=== PATIENT | female | born 1970 | race Caucasian/White ===

== ENCOUNTER 2020-09-11 09:28 | Inpatient (IN) ==
--- NOTE | 2020-09-10 09:58 | Anesthesiology Consultation ---
Date of Service September 10, 2020 Assessment & Plan (1) Encounter for pre-operative examination: Chart Review Chart Review: Acceptable Risk for Surgery and Patient NOT seen in Pre Admission Testing - Check test AM DOS - Check BSG AM DOS Per nursing assessment 09/10/2020, pt resides in [facility]. Wears mask when required by CDC guidelines. Pt is vaccinated for Covid. Travels to [facility] for medical appts. No known Covid positive contacts or Covid related symptoms. No known Covid infection in the past 90 days. Preop Covid test 09/07/20= negative History Surgery Operation Date: 09/11/20 11:00 Proposed Procedures p Total Abdominal Hysterectomy Bilateral Salpingo Oophorectomy - Wilder Barrios MD Height/Weight Height: 5 ft 3 in Weight: 95.254 kg Allergies Allergy/AdvReac Type Severity Reaction Status Date / Time No Known Allergies Allergy Verified 09/10/20 09:05 Medications Home Medications Medication Instructions Recorded Confirmed Last Taken Marijuana Medical Card 1 inh INHALATION DAILY 09/10/20 09/10/20 Unknown clonazepam [Klonopin] 0.5 mg PO DAILY PRN 09/10/20 09/10/20 Unknown fexofenadine 180 mg PO DAILY PRN 09/10/20 09/10/20 Unknown hydrochlorothiazide 12.5 mg PO QAM 09/10/20 09/10/20 Unknown hydroxyzine HCl 25 mg PO HS 09/10/20 09/10/20 Unknown losartan 50 mg PO HS 09/10/20 09/10/20 Unknown nicotine [Nicoderm] 1 patch TRANSDERMAL DAILY 09/10/20 09/10/20 Unknown sertraline [Zoloft] 100 mg PO HS 09/10/20 09/10/20 Unknown Past Medical History Medical History Anxiety SEVERE Cancer RIGHT BREAST DX'D 07/19/20-BREAST SURGERY TBD IN THE FUTURE Diabetes mellitus, type 2 DIET MANAGED Hypertension Migraine HX Temporomandibular joint disorder CLICKS BILAT-NO LOCKING Past Family History Family History Mother Family history of diabetes mellitus Family hx of colon cancer Sister Family hx of colon cancer Past Surgical History Surgical History History of breast biopsy RIGHT History of endometrial ablation WITH D AND C, TUBAL LIGATION Social History Smoking Status: Light tobacco smoker Smoking cigarettes per day: 1-2 A DAY TRYING TO QUIT Do You Dip or Chew Tobacco: Yes (PARENTS SMOKED) Hx Alcohol Use: Yes alcohol intake frequency: a few times a month Hx Substance Use: Yes substance use type: marijuana Substance Use Type Other:: MEDICAL MARIJUANA CARD INH DAILY Lab Results Anesthesia Preop Results Results Anesthesia Widget: WBC 8.73 K/uL (4.8-10.8) 09/07/20 Hgb 13.3 g/dL (12.0-16.0) 09/07/20 Hct 37.9 % (37-47) 09/07/20 Plt 314 K/uL (130-400) 09/07/20 Na 140 mmol/L (136-145) 09/07/20 K 3.8 mmol/L (3.5-5.1) 09/07/20 Cl 110 mmol/L (98-107) H 09/07/20 CO2 24 mmol/L (21-32) 09/07/20 BUN 9 mg/dl (7-18) 09/07/20 Creat 0.67 mg/dl (0.6-1.2) 09/07/20 Glucose Level 88 mg/dl (70-99) 09/07/20 PT 10.9 Seconds (9.0-12.0) 09/07/20 PTT 25.7 Seconds (21.0-31.0) 09/07/20 INR 1.1 (0.9-1.1) 09/07/20 SARS-CoV-2, RNA, NAAT Pending 09/11/20 Blood Type A Negative 09/07/20 Antibody Screen NEGATIVE 09/07/20 Testing Electrocardiogram Date: 09/07/20 Findings: + NSR @ (71bpm) Normal EKG per cardio. Chest X-Ray Date: 09/07/20 Findings: + NAD
--- NOTE | 2020-09-10 11:42 | History and Physical Report ---
DATE OF ADMISSION: 09/11/2020 CHIEF COMPLAINT: Invasive ductal carcinoma in situ, large fibroid. HISTORY OF PRESENT ILLNESS: The patient is a 50-year-old 2, para 2. 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 She has had a tubal ligation and an endometrial abl ation in 2012 for control. She has had no bleeding since. Her last PAP smear was done in 2020 ; it was completely normal. In 06/2020, she was diagnosed with invasive ductal carcinoma in situ wit h one positive node. She was worked up with a PET scan. PET scan revealed a large fibroid uterus, w hich lit up and was subsequently evaluated with an ultrasound; it was found to be 9.9 x 7 x 7.8 cm. She is symptomatic from the fibroid and her oncologist is concerned that it showed activity on the PE T scan. She is presently being scheduled for total abdominal hysterectomy with removal of both ovari es. ALLERGIES: She has no drug allergies. PAST SURGICAL HISTORY: She had a tubal ligation. She had an endometrial ablation. 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 PAST MEDICAL HISTORY: She has high blood pressure for which she is being treated. SOCIAL HISTORY: She was a smoker; she stopped a month ago in anticipation of surgery. No history of excessive alcohol intake. Presently on disability. FAMILY HISTORY: Two children in good health. Mom at age 79 of rectal carcinoma. Father a t age 83 of stroke. She has one sister that is 54 years old that has rectal carcinoma. REVIEW OF SYSTEMS: HEAD: No symptoms of frequent or severe headaches. She did have a history of migraine headache and received acupuncture, which relieved the headaches. PHYSICAL EXAMINATION: GENERAL: A well-developed, well-nourished 50-year-old white female, alert, oriented x3, and coopera tive, in no acute distress, appeared her stated age. EYES: Conjunctivae are pink. Sclerae white. No evidence of jaundice. EARS: Normal light reflex bilaterally. NOSE: Normal mucosa. Septum is midline. There were no polyps. THROAT: No erythema or evidence of infection. Teeth are in good state of repair. HEAD: Normocephalic, normal distribution of hair. NECK: Supple. Trachea midline. Thyroid is not enlarged. There is no adenopathy appreciated. Both carotids are of good intensity. CHEST/LUNGS: Clear to auscultation and percussion. No wheezes, rales or rhonchi appreciated. BREASTS: Revealed a scar from removal of breast mass. HEART: Regular rhythm, S1 and S2 are normal. ABDOMEN: Soft and nontender. Uterus was palpable. PELVIC: Cervix appeared within normal limits. Bimanual exam revealed an enlarged approximately a 16 -week gestational size uterus. MUSCULOSKELETAL: Revealed no calf tenderness. IMPRESSION OF THIS CASE: Hypertension, invasive ductal carcinoma in situ with positive node, symptom atic uterine fibroid, status post tubal ligation, status post endometrial ablation. Job ID: [id number]
[~2020-09-11 09:28] MED LIST: LR 15ML/HR IV SCH
[2020-09-11] MEDS ORDERED: NALOXONE HCL 0.08 MG in SYRINGE 1.8 ML IV PRN (10:06)
[2020-09-11] MEDS ORDERED: ePHEDrine sulfate 50 MG/ML AMP IV PRN (10:06)
[2020-09-11] MEDS ORDERED: ONDANSETRON INJ 2 MG/ML 2 ML VIAL IV PRN (10:06)
[2020-09-11] MEDS ORDERED: NALBUPHINE HCL INJ 10 MG/ML AMP IV PRN (10:06)
[2020-09-11] MEDS ORDERED: MEPERIDINE HCL 25 MG/ML CARP/VIAL IV PRN (10:06)
[2020-09-11] MEDS ORDERED: MoRPHine SULFATE PF 1 MG/ML 10 ML AMP/VIAL INT SPINAL ONE (10:06)
[2020-09-11] MEDS ORDERED: NALOXONE HCL 0.4 MG/1 ML VIAL/CARP IV PRN (10:06)
[2020-09-11] MEDS ORDERED: LACTATED RINGER'S 500 ML IV PRN (10:06)
[2020-09-11] MEDS ORDERED: diphenhydrAMINE 50 MG/ML VIAL IV PRN (10:06)
[2020-09-11] MEDS ORDERED: PROMETHAZINE HCL 12.5 MG in SODIUM CHLORIDE 0.9% 50 ML IV PRN (10:06)
[2020-09-11] MEDS ORDERED: NALOXONE HCL 1 MG in SODIUM CHLORIDE 0.9% 1000ML 1,000 ML IV PRN (10:06)
[2020-09-11] MEDS ORDERED: NO NARCOTICS OR SEDATIVES SCH (10:15)
[2020-09-11] MEDS ORDERED: SODIUM CHLORIDE 0.9% 1000ML 1,000 ML IV SCH (10:15)
[2020-09-11] MEDS ORDERED: MIDAZOLAM HCL 1 MG/ML 2ML VIAL ONE (10:18)
[2020-09-11] MEDS ORDERED: fentaNYL citrate 100 MCG/2 ML VIAL ONE (10:18)
[2020-09-11] MEDS ORDERED: MoRPHine SULFATE PF 1 MG/ML 10 ML AMP/VIAL ONE (10:22)
--- NOTE | 2020-09-11 10:58 | History & Physical Bridge Note ---
Date of Service September 11, 2020 History & Physical Bridge Note I have examined the patient, reviewed the History & Physical and in the interval since the performance of the History & Physical I have noted the following changes of clinical significance: no changes noted
[2020-09-11] MEDS ORDERED: cefOXitin 2,000 MG in DEXTROSE 5% 50 ML IV SCH (11:00)
[2020-09-11] MEDS ORDERED: ROCURONIUM BROMIDE 10 MG/ML 5 ML VIAL IV ONE ×4 (11:20→13:01)
[2020-09-11] MEDS ORDERED: PROPOFOL IV EMULSION 10 MG/ML 20 ML VIAL IV ONE ×2 (11:20→14:02)
[2020-09-11] MEDS ORDERED: LIDOCAINE 2% 2 ML VIAL/AMP(20MG/ML) INFIL ONE (11:20)
[2020-09-11] MEDS ORDERED: ONDANSETRON INJ 2 MG/ML 2 ML VIAL ONE (11:20)
[2020-09-11] MEDS ORDERED: HEPARIN (PORCINE) 1000 UNIT/ML 10 ML (CATH LAB USE ONLY) ONE (11:43)
[2020-09-11] MEDS ORDERED: ePHEDrine sulfate 50 MG/ML AMP ONE (13:04)
[2020-09-11] MEDS ORDERED: SUGAMMADEX SODIUM 200 MG/2 ML VIAL IV ONE (13:05)
--- NOTE | 2020-09-11 14:17 | Post Operative Brief Note ---
Immediate Post Op Note v1 Date of Surgery September 11, 2020 Pre & Post Diagnosis Operation Date: 09/11/20 11:00 Pre-Op Diagnosis: Recently Diagnosed Invasive Ductal Cancer, Fibroid Post-Op Diagnosis: Recently Diagnosed Invasive Ductal Cancer, Fibroid I identified the patient and participated in the time-out.: Yes Procedure Operation Date: 09/11/20 11:00 Actual Procedures p Total Abdominal Hysterectomy Bilateral Salpingo Oophorectomy(Not Applicable) - Wilder Barrios MD Surgeon Wilder Barrios MD [employer] Counselor Dr Oliveros Estimated Blood Loss 100 Findings Consistent with Post-Op Diagnosis large fibroid uterus Specimens both tubes and ovaries fibroid uterus Drains Ambrocio Catheter and Other Anesthesia Type General Complications none Disposition Accompanied Patient To Recovery: No Disposition: Recovery Room
--- NOTE | 2020-09-11 14:48 | Operative Report (OR) ---
DATE OF PROCEDURE: 09/11/2020 PROCEDURE: Total abdominal hysterectomy, bilateral salpingo-oophorectomy. INDICATIONS FOR SURGERY: Symptomatic uterine fibroids. PREOPERATIVE DIAGNOSES: Symptomatic uterine fibroids, breast cancer with positive nodes. POSTOPERATIVE DIAGNOSES: Symptomatic uterine fibroids, breast cancer with positive nodes. PATHOLOGY: Pending. SURGEON: Villa Barrios MD GYMNASTICS COACH OR INSTRUCTOR: Dr. Santosh Oliveros ESTIMATED BLOOD LOSS: 100 mL. ANESTHESIA: General. OPERATIVE FINDINGS AND PROCEDURE: The patient was brought to the OR table, correctly identified by armband and conversation. General anesthesia was administered. Lower abdomen was painted with an alcohol based sterilizing solution. Vaginal prep was done with Betadine. Ambrocio catheter was inserted aseptically in the bladder. Compression stockings were applied. A midline incision was made and carried down to the anterior fascia by sharp dissection. Hemostasis was secured by electrocauterization. Fascia was in the midline. The recti muscle was in the midline. Peritoneum was carefully raised and entered. Then, an O'Drake-O'Felton self-retraining retractor was inserted in the incision. Several moist laparotomy packs were used to retract the intestines. There was a large fibroid uterus, which distorted the shape of the uterus, was grasped with a double tooth tenaculum, both ovaries were normal. Both tubes were status post tubal ligation. The ovarian ligaments were located on each side and then doubly ligated with a chromic gut suture. After tying off the supply to both ovaries, the round ligaments were clamped close to the fundus then doubly ligated distally, cut and then incision was made above the vesicouterine fold. The bladder was advanced out of the operative field. The ovaries were then cut away from the lateral pelvic childs. The uterine vessels were skeletonized on each side, doubly clamped with curved David's, cut with a stump and then doubly ligated with a chromic gut suture. Then, I took a bite of the upper cervix with a curved David on each side, cut with a stump, ligated with a chromic gut suture. I then excised the surgical specimen consisting of upper cervix, both tubes and both ovaries and fibroid. I had much better visualization, I grabbed the cervical stump. We then took out most of the cervix by sliding off the stump and clamping the cardinal ligaments with a chromic gut suture. Then, cutting away the additional portion of the cervix, suturing the angles of the cervix to the stumps of the cardinal ligament then whip stitching what was left of the cervix open and then approximating it front to back on either side, placing a Mcewen drain with a safety pin into the cervix and down into the cul-de-sac. I then brought the round ligaments down for support and tied them into the sutures that were on the cervix. I then reperitonealized using the peritoneal edges and reperitonealized from the right to the middle and then from the left to the middle and then tied them to each other. The end of the Christopher drain was in the cul-de-sac gathering with the safety pin within the vagina. We washed everything. Hemostasis was excellent. Lap count was normal. We then closed the abdomen. The peritoneum was closed with a running chromic gut suture. The PDS was used to approximate the fascia. One was anchored at the top of the fascial defect, one was anchored at the bottom of the fascial defect and was run from the bottom up to the middle and from the top down to the middle. Subcutaneous was approximated with interrupted plain. The skin edges were approximated with staple clips. Following this, hemostasis was good. Urine was clear. Estimated blood loss was 100 mL. Job ID: [id number] [facility]
--- NOTE | 2020-09-11 14:55 | Anesthesiology Progress Note ---
Date of Service September 11, 2020 Anesthesia Post Procedure Vital Signs Vital Signs: Temp Pulse Pulse Resp BP Pulse Ox 09/11/20 14:45 36.5 C 78 24 116/67 94 09/11/20 14:35 36.4 C L 82 22 128/76 98 09/11/20 14:25 86 23 111/69 98 09/11/20 14:18 36.4 C L 77 22 91/56 L 97 09/11/20 10:21 37.3 C 75 18 120/73 96 Transfer of Care Handoff Completed per policy Notes Mental Status: alert / awake / arousable Patient Amnestic to Procedure: Yes Nausea / Vomiting: adequately controlled Pain: adequately controlled Airway Patency, RR, SpO2: stable & adequate BP & HR: stable & adequate Hydration State: stable & adequate Anesthetic Complications: no major complications apparent
[2020-09-11] MEDS: KETOROLAC 30 MG/ML VIAL IV PRN ×2 (15:36→23:36)
[2020-09-11] MEDS: LACTATED RINGER'S 1,000 ML IV SCH (20:30)
[2020-09-12] MEDS ORDERED: ONDANSETRON INJ 2 MG/ML 2 ML VIAL IV PRN (04:06)
[2020-09-12] MEDS ORDERED: PROMETHAZINE HCL 25 MG in SODIUM CHLORIDE 0.9% 50 ML IV PRN (04:06)
[2020-09-12] MEDS ORDERED: DC INTRASPINAL MORPHINE SCH (04:06)
[2020-09-12] MEDS ORDERED: MEPERIDINE HCL 50 MG/ML CARP IV PRN (04:06)
[2020-09-12] MEDS ORDERED: KETOROLAC 30 MG/ML VIAL IV PRN (04:06)
[2020-09-12] MEDS: LACTATED RINGER'S 1,000 ML IV SCH (04:29)
[2020-09-12] MEDS: oxyCODONE/ACETAMINOPHEN 5mg/325mg TAB PO PRN ×3 (10:28→19:35)
--- NOTE | 2020-09-12 11:21 | Obstetrical Progress Note ---
Date of Service September 12, 2020 Assessment & Plan Admission and Anticipated Discharge Date Admission Date: September 11, 2020 Physical Exam Physical Exam: abdomen soft and non tender passing flatus bandage removed incision is clean and dry no calf tenderness ambulating well vaginal bleeding scant Results & Data ([facility]) Vital Signs (Past 12 Hours) Vital Signs Temp Pulse Resp BP Pulse Ox 09/12/20 07:25 37.3 C 76 18 116/72 96 09/12/20 04:00 36.8 C 76 18 96/61 L 95 09/12/20 03:00 18 93 09/12/20 02:00 18 93 09/12/20 01:00 16 92 09/12/20 00:10 18 93 09/11/20 23:25 36.8 C 73 18 96/60 L 95 09/11/20 23:15 18 92
[2020-09-12 11:38] LABS: Hematocrit (blood only) 34.4 % (37-47); Hemoglobin 11.5 g/dL (12.0-16.0)
[2020-09-12] MEDS: IBUPROFEN 600 MG TAB PO PRN ×3 (15:09→23:44)
[2020-09-12] MEDS ORDERED: diphenhydrAMINE Capsule 25 MG CAP PO ONE (17:44)
[2020-09-12] MEDS ORDERED: diphenhydrAMINE Capsule 25 MG CAP ONE (17:48)
[2020-09-12] MEDS: ACETAMINOPHEN W/CODEINE #3 1 TAB PO PRN (23:44)
[2020-09-13] MEDS: ACETAMINOPHEN W/CODEINE #3 1 TAB PO PRN (06:05)
[2020-09-13] MEDS: IBUPROFEN 600 MG TAB PO PRN (06:05)
[2020-09-13] MEDS ORDERED: HYDROCODONE/ACETAMOPHEN 5/325MG TAB PO PRN (09:05)
--- NOTE | 2020-09-13 09:13 | Obstetrical Progress Note ---
Date of Service September 13, 2020 Assessment & Plan Admission and Anticipated Discharge Date Admission Date: September 11, 2020 Subjective abdomen soft and non tender incision is clean and dry no calf tenderness ambulating well xiang drain with saftey pin remode vaginal bleeding scant hgb 11.5 Results & Data ([facility]) Vital Signs (Past 12 Hours) Vital Signs Temp Pulse Resp BP Pulse Ox 09/13/20 07:20 36.7 C 63 18 113/65 97 09/13/20 03:25 36.8 C 59 L 16 90/58 L 96 09/12/20 23:20 37.0 C 70 18 106/67 94
[2020-09-13] MEDS ORDERED: HYDROCODONE/ACETAMOPHEN 5/325MG TAB PO ONE (09:14)
--- NOTE | 2020-09-13 11:29 | Discharge Summary (DS) ---
DATE OF ADMISSION: 09/11/2020 DATE OF DISCHARGE: 09/13/2020 HOSPITAL COURSE: Mrs. Lisa was admitted with a large 9-10 cm fibroid uterus. She recently was di agnosed with invasive ductal carcinoma with one positive node. We did a PET scan. The fibroid lit up . Her oncologist was concerned about it and so we decided to remove it due to the fact that it lit up on PET scan and its size. At the time of surgery, we took both of her ovaries out as per request fr om her oncologist on the day of surgery. She underwent total abdominal hysterectomy, bilateral salpi zelaya-oophorectomy. Bleeding was minimal. Her preoperative hemoglobin was over 12. Postoperatively, i t fell to 11.5. A [employer] drain with a safety pin was placed in the vaginal cuff for drainage. Her postoperative course was excellent. Her bowel sounds returned in under 24 hours. At the time of disc harge, she was ambulating well, eating well. The Christopher drain was removed. Vaginal bleeding was sl ight to moderate. Incision was clean and dry. She was discharged and instructed to return to the [facility] in about 7-8 days for removal of abiel. Job ID: [id number]
== END 2020-09-13 09:35 | disposition home or self-care (01) | DRG 742 ==
LOC: ASU 09:28 → 4S2 14:18